=== PATIENT | female | born 1970 | race Caucasian/White ===

== ENCOUNTER 2022-09-02 09:03 | Emergency (ER) | payer BC, SELFPAY ==
[2022-09-02 09:20] VITALS: BP 123/77; PULSE 91; RESP 18; TEMP 36.5; O2SAT 97; BMI 25.1
--- OUTSIDE RECORDS SUMMARY | 2022-09-02 09:44 | XMS_ITS | Clinical Summary ---
:1970 Author Organization [employer] [facility] [place] [address] Care Team Providers Name Role Phone Tez Evans DO Primary Care Provider Allergies Active Allergy Reactions Severity Noted Date Comments Carbamazepine Rash 04/26/2006 Medications Medication Sig Dispensed Refills Start End Date Status Date cholecalciferol Take 1,000 units 0 Active (Vitamin D) 1,000 by mouth once 3 unit tablet daily. Calcium carbonate Take 500 mg by 0 Active (OYSTERSHELL mouth 2 times 3 CALCIUM) 500 mg daily with tablet meals. levETIRAcetam Take 1 tablet in 0 Active (KEPPRA) 500 mg the morning and 5 tabletIndications: 2 tablets in the Other convulsions evening until further instructions per Dr. Chi. topiramate Take 50 mg by 0 Activ e (TOPAMAX) 50 mg mouth 2 times 9 tablet daily. meclizine Take 1 Tablet 30 Tablet 0 Active (ANTIVERT) 25 mg (25 mg) by mouth 1 tabletIndications: 3 times daily if Vertigo needed for Vertigo. Estring 2 mg (7.5 INSERT 1 RING 0 Active mcg /24 hour) VAGINALLY EVERY 1 vaginal ring 3 MONTHS lisinopriL TAKE 1 TABLET BY 90 Tablet 3 Ac tive (PRINIVIL; ZESTRIL) MOUTH EVERY DAY 2 5 mg tabletIndications: HTN (hypertension) fluticasone Inhale 1 Puff by 60 Each 0 A ctive propionate (FLOVENT mouth 2 times 2 DISKUS) 100 daily. mcg/actuation inhalerIndications: Cough, Wheezing cetirizine (ZYRTEC) Take 1 Tablet 0 Active 10 mg (10 mg) by mouth 2 tabletIndications: once daily. Seasonal allergies polyethylene Drink 2 liters 4000 mL 0 Ac tive glycol-electrolyte the day before 2 (GOLYTELY) colonoscopy and [id number] drink 2 liters 6 -5.86 gram hours before suspensionIndicatio colonoscopy ns: Encounter for appointment screening colonoscopy amoxicillin-clavula Take 1 Tablet by 10 Tablet 0 Active rahul 875-125 mg mouth two times 2 22 tablet daily with meals (AUGMENTIN)Indicati for 5 days. ons: Acute non-recurrent maxillary sinusitis albuterol HFA Inhale 1-2 Puffs 1 Each 0 Active (PRO-AIR; VENTOLIN; by mouth every 4 2 PROVENTIL) 90 hours if needed mcg/actuation for Shortness of inhalerIndications: Breath 1st Bacterial choice or sinusitis, Acute Wheezing 1st cough choice. predniSONE Take 3 Tablets 12 Tablet 0 09/06/20 Acti ve (DELTASONE) 10 mg (30 mg) by mouth 2 22 tabletIndications: once daily with Bacterial a meal for 2 sinusitis, Acute days, THEN 2 cough Tablets (20 mg) once daily with a meal for 2 days, THEN 1 Tablet (10 mg) once daily with a meal for 2 days. guaiFENesin Take 1 Tablet 10 Tablet 0 09/05/20 Acti ve (MUCINEX) 600 mg (600 mg) by 2 22 Extended-Release mouth two times tabletIndications: daily for 5 Acute non-recurrent days. maxillary sinusitis, Bacterial sinusitis, Acute cough albuterol HFA Inhale 1-2 Puffs 1 Each 0 08/28/20 Discontinued (PRO-AIR; VENTOLIN; by mouth every 4 2 22 (Reorder PROVENTIL) 90 hours if needed (E-cancel not mcg/actuation for Shortness of sent)) inhalerIndications: Breath 1st Bacterial choice or sinusitis, Cough Wheezing 1st choice. 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 Cough, congestion, hea dache, fatigue. ) 08/28/2022 Travel 08/04/2022 Nurse/Clinic Staff Immunizat ion/Injection Only (TDAP AND 1ST S HINGRIX ); Immunization/In jection 08/04/2022 Travel 07/20/2022 Telephone Tez Evans, Questions 07/17/2022 Office Visit Tez Evans DO Physical (5 2 year old female ); Medic ation Management (Med s are going well - st arted the estrogen ) 07/17/2022 Telephone Oleksandr Juarez MD 07/17/2022 Travel 07/02/2022 Ancillary Procedure 07/02/2022 Telephone Tez Evans DO Results 07/02/2022 Travel from Last 3 Months Immunizations Name Administration Dates Next Due Influenza A (H1N1), Inactivated 09/25/2009 Influenza A (H1N1), Inactivated (Age 0109/25/2009 >=3 Years) Influenza, IIV3 (Age 6-35 mos) 06/26/2011, 07/09/2009 Influenza, IIV3 (Age >=3 years) 05/29/2013, 07/04/2012, 06/20, 07/19/2009, 07/23/2008, 08/09/2007, 07/09/2006, 07/15/2005, 06/27/2004, 07/28/2003 Influenza, IIV4 06/30/2021, 06/19/2019, 06/18/2017, 06/05/2015, 06/18/2014, 05/28/2014 Influenza, IIV4 (=>6mos) MDV 06/14/2018 Influenza,CCIIV4 PRESERV FREE 05/20/2022, 06/18/2020 Td (Age >=7 Years) 02/02/2003 Tdap 08/04/2022, 07/14/2012 Zoster (Shingrix-RZV, recombinant) 08/04/2022 Family History Medical History Relation Name Comments Stroke Brother carotid stenosis Hypertension Father Stroke Father carotid arteries Cancer-breast Maternal Aunt Cancer-breast Mother Hypertension Mother Cancer-breast Sister 1 Hypertension Sister 3 Relation Name Status Comments Brother Alive Father Alive Maternal Aunt Mother Alive Sister 1 Sister 2 Alive Sister 3 Social History Tobacco Use Types Packs/Day Years Used Date Smoking Tobacco: Never Smokeless Tobacco: Never Tobacco Cessation: Counseling Given: Yes Alcohol Use Standard Drinks/Week Comments Yes 0 (1 standard drink = 0.6 oz pure alcoho l) wine once in a while Alcohol Habits Answer Date Recorded How often do you have a drink containing alcohol? 2-3 times a week 07/02/2020 How many drinks containing alcohol do you have on a 1 or 2 07/02/2020 typical day when you are drinking? How often do you have six or more drinks on one Never 07/02/2020 occasion? Sex Assigned at Date Recorded Not on file COVID-19 Exposure Response Date Recorded In the last 10 days, have you been in contact with No / Unsu re 09/02/2022 7:30 AM SENIOR TREASURY ANALYST someone who was confirmed or suspected to have Coronavirus/COVID-19? Obstetrics History Para Term AB IAB SAB Ectopic Multiple Living Live Births 0 0 0 0 0 0 0 0 0 0 Last Filed Vital Signs Vital Sign Reading Time Taken Comments Blood Pressure 127/85 08/28/2022 3:29 PM SENIOR TREASURY ANALYST Pulse 64 08/28/2022 3:29 PM SENIOR TREASURY ANALYST Temperature 36.7 ??C (98.1 ??F) 05/05/2021 9:30 AM CDT Respiratory Rate 20 05/05/2021 9:45 AM CDT Oxygen Saturation 100% 08/28/2022 3:29 PM SENIOR TREASURY ANALYST Inhaled Oxygen Concentration - - Weight 62.6 kg (138 lb) 08/28/2022 3:29 PM SENIOR TREASURY ANALYST Height 157.6 cm (5' 2.05) 08/28/2022 3:29 PM SENIOR TREASURY ANALYST Body Mass Index 25.2 08/28/2022 3:29 PM SENIOR TREASURY ANALYST Plan of Treatment Upcoming Encounters Date Type Specialty Care Team Description 09/02/2022 Office Visit Kortney Deleon PA [address] [place], [place] [address] (Wo rk) Health Maintenance Due Date Last Done Comments HIV for age 15-65 1985 COVID-19 vaccine series (4 10/16/2021 08/21/2021, , - Booster for Pfizer 11/30/2020 series) Colonoscopy through age 75 04/07/2022 04/07/2017, 7 Zoster (shingles) series 09/29/2022 08/04/2022 for age 50+ (2 of 2) Influenza for age 50-64 04/20/2023 05/20/2022, 06/30/2021, Postponed from 06/18/2020, Additional 2 (Other) history exists Mammogram for age 45-75 07/02/2023 07/02/2022, 06/24/2021, 05/17/2020, Additional history exists Depression screening for 07/20/2023 07/20/2022, 07/17/2022, age 12+ 07/17/2022, Additional history exists BMI (ht and wt on same 08/28/2023 08/28/2022, 07/17/2022, day) for age 18+ 06/30/2021, Additional history exists Lipids for age 45-75 07/17/2027 07/17/2022, 06/30/2021 Tetanus booster 08/04/2032 08/04/2022, 07/14/2012, 02/02/2003 Hepatitis C screening for Completed 07/17/2022 age 18-79 Tdap Completed 08/04/2022, 07/14/2012 Procedures Procedure Name Priority Date/Time Associated Diagnosis Comme nts POTASSIUM Routine 08/28/2022 4:15 PM Pre-op exam Results f or this SENIOR TREASURY ANALYST procedure are i n the results section. BASIC METABOLIC Routine 07/17/2022 8:36 AM HTN (hypertension) Results for this PANEL CDT procedure are i n the results section. LIPID PANEL W Routine 07/17/2022 8:36 AM Lipid screening Resul ts for this REFLEX MEASURED LDL CDT procedur e are in the results section. ANTI HCV Routine 07/17/2022 8:36 AM Need for hepatitis C R esults for this CDT screening test procedure are in the results section. XR MAMMO SEVERIANO BILAT Routine 07/02/2022 9:14 AM Visit for dina rowley Results for this SCREEN CDT mammogram procedure are i n the results section. from Last 3 Months Results POTASSIUM (08/28/2022 4:15 PM SENIOR TREASURY ANALYST) athologist Signature POTASSIUM 4.2 3.5 - 5.0 08/30/2022 [facility] [employer] mmol/L 5:12 PM SENIOR TREASURY ANALYST LABORATORY-CENTR AL LABORATORY Specimen Anatomical Collection Method / Collection Time Recei bharat Time (Source) Location / Volume Laterality Blood BLOOD SPECIMEN / Venipuncture / 08/28/2022 4:15 2021 4:16 Unknown Unknown PM SENIOR TREASURY ANALYST PM SENIOR TREASURY ANALYST rTangi Nathan DO CHEMISTRY Performing Organization Address City/State/ZIP Code Phon e Number [employer] [address] [place] [address] LABORATORY-CENTRAL 2000 LABORATORY (ABNORMAL) LIPID PANEL W REFLEX MEASURED LDL (07/17/2022 8:36 AM CDT) [facility] gist Method Time Signature CHOLESTEROL,TOTAL 268 (H) 100 - 199 07/19/2022 [facility] mg/dL 1:50 AM CDT LABORATORY-J[facility] TRAL LABORATORY TRIGLYCERIDES 95 <150 07/19/2022 [facility] mg/dL 1:50 AM CDT LABORATORY-[facility] TRAL LABORATORY HDL CHOLESTEROL 68 >40 mg/dL 07/19/2022 [facility] 1:50 AM CDT LABORATORY-[facility] TRAL LABORATORY NON-HDL 200 (H) <145 07/19/2022 [facility] CHOLESTEROL mg/dl 1:50 AM CDT LABORATORY-[facility] TRAL LABORATORY CHOL/HDL RATIO 3.94 <4.50 07/19/2022 [facility] 1:50 AM CDT LABORATORY-[facility] TRAL LABORATORY LDL CHOLESTEROL 181 (H) <=130 07/19/2022 [facility] mg/dL 1:50 AM CDT LABORATORY-[facility] TRAL LABORATORY VLDL CHOLESTEROL 19 <=30 07/19/2022 [facility] mg/dL 1:50 AM CDT LABORATORY-[facility] TRAL LABORATORY PROVIDER ORDERED RANDOM 07/19/2022 [facility] STATUS 1:50 AM CDT LABORATORY-[facility] TRAL LABORATORY Specimen Anatomical Collection Method / Collection Time Recei bharat Time (Source) Location / Volume Laterality Blood BLOOD SPECIMEN / Venipuncture / 07/17/2022 8:36 2021 8:36 Unknown Unknown AM CDT AM CDT Tez Evans DO CHEMISTRY Performing Organization Address City/[facility] Phon e Number [employer] [address] [place] [phone] LABORATORY-CENTRAL 2000 LABORATORY ANTI HCV (07/17/2022 8:36 AM CDT) Patholo gist Method Time Signature HEPATITIS C Non-Reacti Non-Reacti 07/19/2022 [facility] ANTIBODY ve ve 1:54 AM CDT LABORATORY-J[facility] TRAL LABORATORY Comment: Antibodies to HCV not detected; does not exclude the possibility of exposure to HCV. Specimen Anatomical Collection Method / Collection Time Recei bharat Time (Source) Location / Volume Laterality Blood BLOOD SPECIMEN / Venipuncture / 07/17/2022 8:36 2021 8:36 Unknown Unknown AM CDT AM CDT Tez Evans DO SEND OUTS Performing Organization Address City/[facility] Phon e Number [employer] [address] [place] [phone] LABORATORY-CENTRAL 1999 LABORATORY (ABNORMAL) BASIC METABOLIC PANEL (07/17/2022 8:36 AM CDT) P athologist Signature SODIUM 140 135 - 145 07/19/2022 [facility] mmol/L 1:49 AM CDT LABORATORY-J[facility] TRAL LABORATORY POTASSIUM 4.3 3.5 - 5.0 07/19/2022 [facility] mmol/L 1:49 AM CDT LABORATORY-J[facility] TRAL LABORATORY CHLORIDE 107 98 - 110 07/19/2022 [facility] mmol/L 1:49 AM CDT LABORATORY-J[facility] TRAL LABORATORY CO2,TOTAL 26 21 - 31 07/19/2022 [employer] mmol/L 1:49 AM CDT LABORATORY-J[facility] TRAL LABORATORY ANION GAP 7 5 - 18 07/19/2022 [employer] 1:49 AM CDT LABORATORY-J[facility] TRAL LABORATORY GLUCOSE 91 65 - 100 07/19/2022 [facility] [employer] mg/dL 1:49 AM CDT LABORATORY-J[facility] TRAL LABORATORY CALCIUM 10.1 8.5 - 10.5 07/19/2022 [facility] [employer] mg/dL 1:49 AM CDT LABORATORY-JH TRAL LABORATORY BUN 19 8 - 25 07/19/2022 [facility] [employer] mg/dL 1:49 AM CDT LABORATORY-JH TRAL LABORATORY CREATININE 0.74 0.57 - 07/19/2022 [employer] 1.11 mg/dL 1:49 AM CDT LABORATORY-J[facility] TRAL LABORATORY BUN/CREAT RATIO 26 (H) 10 - 20 07/19/2022 [facility] [employer] 1:49 AM CDT LABORATORY-J[facility] TRAL LABORATORY eGFR >90 >90 07/19/2022 [facility] [employer] mL/min/1.7 1:49 AM CDT LABORATORY-JH 3m2 TRAL LABORATORY Comment: As of 2021, eGFR is calcu lated by the CKD-EPI creatinine equation without race adjustment. eGFR can be inf luenced by muscle mass, exercise, and diet. The reported eGFR is an estimation only and is only applicable if the renal function is stable. Specimen Anatomical Collection Method / Collection Time Recei bharat Time (Source) Location / Volume Laterality Blood BLOOD SPECIMEN / Venipuncture / 07/17/2022 8:36 2021 8:36 Unknown Unknown AM CDT AM CDT Tez Evans DO CHEMISTRY Performing Organization Address City/State/ZIP Code Phon e Number [employer] [address] [place] [address] LABORATORY-CENTRAL 2000 LABORATORY XR MAMMO SEVERIANO BILAT SCREEN (07/02/2022 9:14 AM CDT) Anatomical Region Laterality Modality BREASTS, Breast Left, Breast Right Bilateral Mammo graphy Specimen (Source) Anatomical Location Collection Method / Collectio n Time Received Time / Laterality Volume Impressions 07/02/2022 3:36 PM CDT ??There is no radiographic evidence for malignancy. ??Recommend annual mammograms. MAMMOGRAM ASSESSMENT: ??ACR 1 Negative PATIENTS: You will also receive a letter with your examination results in an easy to read format. ??If you have qu estions about your results, please contact your referring provider. Narrative 07/02/2022 3:36 PM CDT For Patients: As a result of the Cures Act, medical imaging exams and procedure reports are released immediately into your electronic medical record. You may view this report before your referring provider. If you have questions, please contact [facility] care provider. XR MAMMO SEVERIANO BILAT SCREEN [[id number]] CLINICAL HISTORY: ??This is an asymptoma tic 52 y.o. patient. INDICATION FOR EXAM: Mammogram Screening . TECHNIQUE: CC & MLO views were obtained. ??This study was evaluated with the assistance of Computer-Aided Detecti on. Breast Tomosynthesis was used in interpretation. COMPARISON FILM: Yes 06/24/21 [facility] 05/17/20 [facility] FINDINGS: ??The breasts are heterogeneou sly dense, which may obscure small masses. There are no dominant masses, wilson spicious micro calcifications or areas of architectural distortion. Tez Evans DO MAMMO from Last 3 Months Insurance Payer Benefit Plan / Subscriber ID Effective Dates Phone Addre ss Type Group BLUE [employer]OSS [id number] 2017-Present [address] [place] [address] [employer] Self 1970 [facility] (Home) [place] [address] Care Teams Patient Clerical Assistant Relationship Specialty Start Date End Date Tez Evans DO PCP - General Family Practice 11/26/20 [place] [address]
--- NOTE | 2022-09-02 10:04 | PC.NURSE ---
Patient was discharged home. Prescription for Tesslon Pearls were sent to [facility]. will call patient with results of test. All questions answered. Left ambulatory.
[2022-09-02 10:05] VITALS: PULSE 76; RESP 16; O2SAT 97
[2022-09-02 10:17] LABS: PCR FLU A Negative PCR FLU A (Negative); PCR FLU B Negative PCR FLU B (Negative); PCR RSV POSITIVE PCR RSV (Negative); SARS PCR* Negative SARS-CoV-2 (Negative)
--- NOTE | 2022-09-02 11:03 | ED.NURSE ---
Called patient with results of COVID/FLU/RSV. Was RSV positive. Per Dr. Leavitt, continue the plan when patient discharged. All questions answered.
--- NOTE | 2022-09-08 09:22 | ED_ITS ---
HPI - General Adult General Chief complaint: Cough Stated complaint: Cough, fever Time Seen by Provider: 09/02/22 09:05 History of Present Illness HPI narrative: Patient is a 52 year white female who presents with not feeling well for couple days, cough congestion. She was started on prednisone, Augmentin. She got inhaler as well. She is not specifically improved presents to ER for evaluation, no real shortness of breath, no chest pain. No leg swelling or edema or clotting problems. Related Data Home Medications Medication Instructions Recorded Confirmed albuterol sulfate 90 mcg/actuation inhalation 09/02/22 aerosol inhaler amoxicillin 875 mg-potassium tab 09/02/22 clavulanate 125 mg tablet lisinopril 5 mg tablet 5 mg PO DAILY 09/02/22 09/02/22 prednisone 10 mg tablet 10 mg PO DAILY 09/02/22 09/02/22 topiramate 50 mg tablet 50 mg PO DAILY 09/02/22 09/02/22 Previous Rx's Medication Instructions Recorded estradiol 2 mg (7.5 mcg/24 hour) 1 vag ring vaginal [id number] #1 ea 08/31/22 vaginal ring (Estring) benzonatate 100 mg capsule 100 mg PO Q6H #20 caps 09/02/22 Review of Systems Status of ROS: Reports: 6 or more systems reviewed and unremarkable except as noted in History and below Exam Narrative: Exam Narrative: Objective vital signs unremarkable afebrile O2 sat 97% on room air HEENT unremarkable Chest clear Skin good peripheral perfusion Neurologic nonfocal Course Vital Signs Vital signs: Initial Vital Signs Temperature 97.7 F 09/02/22 09:20 Temperature Source Temporal Artery Scan 09/02/22 09:20 Pulse Rate 91 09/02/22 09:20 Respiratory Rate 18 09/02/22 09:20 Blood Pressure 123/77 09/02/22 09:20 Blood Pressure Mean 92 09/02/22 09:20 Blood Pressure Position Sitting 09/02/22 09:20 Pulse Oximetry 97 09/02/22 09:20 Oxygen Delivery Method 09/02/22 09:20 Vital Signs Temperature 97.7 F 09/02/22 09:20 Pulse Rate 91 09/02/22 09:20 Respiratory Rate 18 09/02/22 09:20 Blood Pressure 123/77 09/02/22 09:20 Pulse Oximetry 97 09/02/22 09:20 Oxygen Delivery Method 09/02/22 09:20 Temperature 97.7 F 09/02/22 09:20 Pulse Rate 76 09/02/22 10:05 Respiratory Rate 16 09/02/22 10:05 Blood Pressure 123/77 09/02/22 09:20 Pulse Oximetry 97 09/02/22 10:05 Oxygen Delivery Method 09/02/22 10:05 Medical Decision Making MDM Narrative Medical decision making narrative: Patient will get a COVID/RSV/influenza test Addendum: The patient is positive for RSV, symptomatic management, Tessalon Perles as needed, continue continue and finish the prednisone and other medications she was prescribed, inhaler as needed. Return as needed. Lab Data Labs: Lab Results 09/02/22 Range/Units 09:30 SARS-CoV-2 (PCR) Negative SARS-CoV-2 (Negative) Influenza Type A (PCR) Negative PCR FLU A (Negative) Influenza Type B (PCR) Negative PCR FLU B (Negative) RSV (PCR) POSITIVE PCR RSV A (Negative) Discharge Plan Discharge Clinical Impression: Acute viral syndrome Patient Disposition: Home, Self-Care Additional Instructions: Rest, light activity, off work for 3-4 days, Tylenol Advil as needed, continue the medications as prescribed, will call in Tyto Life as well. Recheck with regular doctor next 2-3 days not improving, return to ED sooner problems or concerns. . Mucinex while on the Tyto Life Activity Level: Light activity Discharge Diet: Regular Prescriptions: New benzonatate 100 mg capsule 100 mg PO Q6H Qty: 20 0RF No Action lisinopril 5 mg tablet 5 mg PO DAILY Label Comments: TAKE 1 TABLET BY MOUTH EVERY DAY albuterol sulfate 90 mcg/actuation HFA aerosol inhaler INHALATION Label Comments: INHALE 1-2 PUFFS BY MOUTH EVERY 4 HOURS IF NEEDED FOR SHORTNESS OF BREATH/WHEEZING 1ST CHOICE amoxicillin-pot clavulanate 875-125 mg tablet Label Comments: TAKE 1 TABLET BY MOUTH TWO TIMES DAILY WITH MEALS FOR 5 DAYS. prednisone 10 mg tablet 10 mg PO DAILY Label Comments: 2 tabs then 1 tab x 3 daily topiramate 50 mg tablet 50 mg PO DAILY Label Comments: TAKE 1 TABLET BY MOUTH TWICE A DAY Estring 2 mg (7.5 mcg /24 hour) ring 1 vag ring vaginal [id number] Qty: 1 0RF Follow Up/Referrals: KHADRA LANGLEY DO [Primary Care Provider] - Stand Alone Forms: [employer] Info Instructions
== END 2022-09-02 09:57 | disposition home or self-care (01) ==
LOC: ED 09:42
PROVIDERS: Emergency Provider Family Medicine; PCP Student in an Organized Health Care Education/Training Program
DX: R05.9 Cough, unspecified (principal); R09.89 Other specified symptoms and signs involving the circulatory and respiratory systems; B34.9 Viral infection, unspecified
CPT/HCPCS: 87502; 87634; 87635; 99283

== ENCOUNTER 2023-10-04 07:27 | Outpatient (CLI) | payer BC, SELFPAY ==
--- OUTSIDE RECORDS SUMMARY | 2023-10-04 07:41 | XMS_ITS | Clinical Summary ---
Author Name Unknown Organization [facility] Address [place], [place] [address] Care Team Providers Care Beater Tender Name Role Phone Tez Evans DO Primary Care Provider [phone] Allergies Active Allergy Reactions Criticality Noted Date Comments Carbamazepine Rash 04/26/2006 Medications Medication Sig Dispensed Refills Start Date End Date Status cholecalciferol (Vitamin D) 1,000 unit tablet Take 1,000 units by mouth once daily. 0 3 Active Calcium carbonate (OYSTERSHELL CALCIUM) 500 mg tablet Take 500 mg by mouth 2 times daily with meals. 0 3 Active levETIRAcetam (KEPPRA) 500 mg tabletIndication s:Other convulsions Take 1 tablet in the morning and 2 tablets in the evening until further instructions per Dr. Chi. 0 5 Active topiramate (TOPAMAX) 50 mg tablet Take 50 mg by mouth 2 times daily. 0 9 Active meclizine (ANTIVERT) 25 mg tabletIndication s:Vertigo Take 1 Tablet (25 mg) by mouth 3 times daily if needed for Vertigo. 30 Tablet 0 1 Active cetirizine (ZYRTEC) 10 mg tabletIndication s:Seasonal allergies Take 1 Tablet (10 mg) by mouth once daily. 0 2 Active estrogens, conjugated (Premarin) 0.625 mg/gram vaginal creamIndications :Vaginal atrophy 1 applicatorful intravaginally twice a week. 42.5 g 0 3 Active polyethylene glycol-electroly te (GOLYTELY) 236-22.74-6.74 -5.86 gram suspensionIndica tions:Encounter for screening colonoscopy Drink 2 liters the day before the procedure and 2 liters 6 hours prior to procedure 4000 mL 0 3 Active lisinopriL (PRINIVIL; ZESTRIL) 5 mg tabletIndication s:HTN (hypertension) TAKE 1 TABLET BY MOUTH EVERY DAY 90 Tablet 0 4 Active lisinopriL (PRINIVIL; ZESTRIL) 5 mg tabletIndication s:HTN (hypertension) Take 1 Tablet (5 mg) by mouth once daily. 90 Tablet 0 3 09/26/19 24 Discontinued Active Problems Problem Noted Date Diagnosed Date Adenomatous polyp of sigmoid colon 04/09/2017 Overview: Colonoscopy 03/2017 polyp, random biopsies normal, repeat in 5 years Generalized idiopathic epile psy and epileptic syndromes, not intractable, without status epilepticus 08/21/2015 Osteopenia 12/19/2014 Insomnia, unspecified 10/22/2010 Polycystic ovaries 04/08/2007 Overview: syndrome Encounters Date Type Department Care Team Description 09/29/2023 Telephone [facility] [address] [place] [address] Oleksandr Juarez MD Error-please disregard 09/24/2023 Refill [facility] [place] [address] Tez Evans DO Refill Request (Lisinopril) 09/21/2023 7:40 AM RETAIL ASSOCIATE Preop Visit [facility] [address] [place] [address] Tez Evans DO Preoperative Exam (Colonoscopy at [facility] by Dr. Juarez on 10/04/23); Immunization/Injecti on; Immunization/Injecti on (COVID-19 vaccine) 09/21/2023 Travel 08/23/2023 Nurse Triage [facility] [place] [address] Tez Evans DO Diarrhea 07/06/2023 1:10 PM CDT Orders Only [facility] [place] [address] Lab, [place] Outside Order (Ordered by Randall Garrido) 07/06/2023 11:40 AM CDT Ancillary Procedure [facility] [address] [place] [address] 07/06/2023 Travel from Last 3 Months Immunizations Name Administration Dates Next Due COVID-19 vaccine (Pfizer-Bio NTech 30mcg/0.3mL) 12YO+ BIVALENT PF, MDV 12/17/2022 Influenza A (H1N1), Inactivated 09/25/2009 Influenza A (H1N1), Inactiva misha (Age >=3 Years) 09/25/2009 Influenza, IIV3 (Age 6-35 mos) 06/26/2011,2008 Influenza, IIV3 (Age >=3 years) 05/29/20 13,07/04/2012,07/08/2010,2008,07/23/2008,08/09/2007,07/09/2006,1 ,06/27/2004,07/28/2003 Influenza, IIV4 06/30/2021, 9,06/18/2017,2014,06/18/2014,05/28/2014 Influenza, IIV4 (=>6mos) MDV 06/14/2018 Influenza,CCIIV4 PRESERV FREE 05/20/2022, 020 Td (Age >=7 Years) 02/02/2003 Tdap 08/04/2022,07/14/2012 Zoster (Shingrix-RZV, recombinant) 12/17/2022, Family History Medical History Relation Name Comments Stroke Brother carotid stenosi s Hypertension Father Stroke Father carotid arterie s Cancer-breast Maternal Aunt Cancer-breast Mother Hypertension Mother Cancer-breast Sister 1 Hypertension Sister 3 Cancer-ovarian No Family History Relation Name Status Comments Brother Alive Father Alive Maternal Aunt Mother Alive Sister 1 Sister 2 Alive Sister 3 Social History Tobacco Use Types Packs/Day Years Used Date Smoking Tobacco: Never Smokeless Tobacco: Never Tobacco Cessation:Counseling Given: Yes Alcohol Use Standard Drinks/Week Comments Yes 0 (1 standard drink = 0.6 oz pur e alcohol) wine once in a while PHQ-2 Answer Date Recorded PHQ-2 TOTAL SCORE 0 07/17/2022 Social Connections Answer Date Recorded Frequency of Communication with Friends and Fami ly 0 03/08/2023 Financial Resource Strain Answer Date R ecorded Difficulty of Paying Living Expenses 3 03/08/2023 Difficulty of Paying Living Expenses Not on file 03/08/2023 Food Insecurity Answer Date Recorded Worried About Running Out of Food in the Last Ye ar 1 03/08/2023 Transportation Needs Answer Date Record ed Lack of Transportation (Medical) 1 03/08/2023 Housing Stability Answer Date Recorded Unable to Pay for Housing in the Last Year 1 03/08/2023 Sex and Gender Information Value Date Recorded Sex Assigned at Not on file Gender Identity Not on file Sexual Orientation Not on file Obstetrics History Para Term AB IAB SAB Ectopic Multiple Livin g Live Births 0 0 0 0 0 0 0 0 0 0 Last Filed Vital Signs Vital Sign Reading Time Taken Comments Blood Pressure 145/75 09/21/2023 7:35 AM RETAIL ASSOCIATE Pulse 65 09/21/2023 7:35 AM RETAIL ASSOCIATE Temperature 36.7 ??C (98.1 ??F) 09/21/2023 7:35 AM CS T Respiratory Rate 20 05/05/2021 9:45 AM CDT Oxygen Saturation 100% 09/21/2023 7:35 AM RETAIL ASSOCIATE Inhaled Oxygen Concentration - - Weight 65.3 kg (144 lb) 09/21/2023 7:35 AM RETAIL ASSOCIATE Height 160 cm (5' 3) 09/21/2023 7:35 AM RETAIL ASSOCIATE Body Mass Index 25.51 09/21/2023 7:35 AM RETAIL ASSOCIATE Plan of Treatment Upcoming Encounters Date Type Department Care Team (Late st Contact Info) Description 10/04/2023 7:45 AM RETAIL ASSOCIATE Procedure Only [facility] [address] [place] [address] Oleksandr Juarez MD [address] [place] [address] Health Maintenance Due Date Last Done Comments HIV for age 15-65 1985 Colonoscopy through age 75 04/07/2022 04/07/2017, COVID-19 vaccine series ( season) 2023 12/17/2022, 08/21/2021, 12/21/2020, Additional history exists Influenza for age 50-64 05/21/2023 05/20/20 22, 06/30/2021, 06/18/2020, Additional history exists Depression screening for age 12+ 07/20/2023 07/20/2022, 07/17/2022, 07/17/2022, Additional history exists Mammogram for age 45-75 07/06/2024 07/06/20 23, 07/02/2022, 06/24/2021, Additional history exists BMI (ht and wt on same day) for age 18+ 09/21/2024 09/21/2023, 08/28/2022, 07/17/2022, Additional history exists Lipids for age 45-75 07/17/2027 07/17/2022, 06/30/20 21 Tetanus booster 08/04/2032 08/04/2022, 06/21, 02/02/2003 Hepatitis C screening for age 18-79 Completed 07/17/2022 Tdap Completed 08/04/2022, 07/14/2012 Zoster (shingles) series for age 50+ Completed 12/17/2022, 08/04/2022 Pneumococcal series for age 6-64 Aged Out No longer eligible based on patient's age to complete this topic Procedures Procedure Name Priority Date/Time Associated Diagnosis Comments POTASSIUM Routine 09/21/2023 8:18 AM RETAIL ASSOCIATE Pre-op evaluation CBC WITH AUTO DIFFERENTIAL Routine 07/06/2023 11:58 AM CDT Idiopathic generalized epilepsy (HC) LEVETIRACETAM (KEPPRA) Routine 11:58 AM CDT Idiopathic generalized epilepsy (HC) CBC WITH AUTO DIFFERENTIAL Routine 07/06/2023 11:58 AM CDT Idiopathic generalized epilepsy (HC) BASIC METABOLIC PANEL Routine 07/06/2023 11:58 AM CDT Idiopathic generalized epilepsy (HC) AST (SGOT) Routine 07/06/2023 11:58 AM CDT Idiopathic generalized epilepsy (HC) XR MAMMO SEVERIANO BILAT SCREEN Routine 07/06/2023 11:47 AM CDT Visit for screening mammogram from Last 3 Months Results * POTASSIUM (09/21/2023 8:18 AM RETAIL ASSOCIATE) POTASSIUM 4.3 3.5 - 5.1 mmol/L 09/21/2023 1:49 PM RETAIL ASSOCIATE [facility] Blood BLOOD SPECIMEN / Unknown Venipuncture / Unknown 09/21/2023 8:18 AM RETAIL ASSOCIATE 09/21/2023 8:18 AM RETAIL ASSOCIATE Tez Evans DO CHEMISTRY [facility] [address] [place] [address], * CBC WITH AUTO DIFFERENTIAL (07/06/2023 11:58 AM CDT) WHITE BLOOD COUNT 6.1 4.5 - 11.0 thou/cu mm 07/06/2023 12:02 PM CDT [facility] RED BLOOD COUNT 4.59 4.00 - 5.20 mil/cu mm 07/06/2023 12:02 PM CDT [facility] HEMOGLOBIN 14.5 12.0 - 16.0 g/dL 07/06/2023 12:02 PM CDT [facility] HEMATOCRIT 42.0 33.0 - 51.0 % 07/06/2023 12:02 PM CDT [facility] MCV 92 80 - 100 fL 07/06/2023 12:02 PM CDT [facility] MCH 31.6 26.0 - 34.0 pg 07/06/2023 12:02 PM CDT [facility] MCHC 34.5 32.0 - 36.0 g/dL 07/06/2023 12:02 PM CDT [facility] RDW 12.3 11.5 - 15.5 % 07/06/2023 12:02 PM CDT [facility] PLATELET COUNT 276 140 - 440 thou/cu mm 07/06/2023 12:02 PM CDT [facility] MPV 9.6 6.5 - 11.0 fL 07/06/2023 12:02 PM CDT [facility] % NEUT 66.5 % 07/06/2023 12:02 PM CDT [facility] % LYMPH 24.8 % 07/06/2023 12:02 PM CDT [facility] % MONO 7.7 % 07/06/2023 12:02 PM CDT [facility] % EOS 0.8 % 07/06/2023 12:02 PM CDT [facility] % BASO 0.2 % 07/06/2023 12:02 PM CDT [facility] ABSOLUTE NEUTROPHILS 4.1 1.7 - 7.0 thou/cu mm 07/06/2023 12:02 PM CDT [facility] ABSOLUTE LYMPHOCYTES 1.5 0.9 - 2.9 thou/cu mm 07/06/2023 12:02 PM CDT [facility] ABSOLUTE MONOCYTES 0.5 <0.9 thou/cu mm 07/06/2023 12:02 PM CDT [facility] ABSOLUTE EOSINOPHILS 0.1 <0.5 thou/cu mm 07/06/2023 12:02 PM CDT [facility] ABSOLUTE BASOPHILS 0.0 <0.3 thou/cu mm 07/06/2023 12:02 PM CDT [facility] Blood BLOOD SPECIMEN / Unknown Venipuncture / Unknown 07/06/2023 11:58 AM CDT 07/06/2023 11:58 AM CDT Narrative [facility] - 07/06/2023 12:02 PM CDT This testing was ordered by an outside provider. The provider who placed this order has reviewed and approved it for completion by the lab, but is not involved in this patient's care related to the ordering of this lab. The lab will provide the testing results for AST, BMP, CDF and Keppra, to the outside ordering provider, Randall Garrido at fax number [phone], for that provider to inform and arrange appropriate follow up with the patient. Yarelis Davies MLT ([facility]).................... ??07/06/2023 ?? 11:53 AM Tez Evans DO HEMATOLOGY [facility] [address] [place] [address], * LEVETIRACETAM (KEPPRA) (07/06/2023 11:58 AM CDT) LEVETIRACETAM (KEPPRA) 21.8 6.0 - 46.0 ug/mL 07/07/2023 10:57 AM CDT [facility] Blood BLOOD SPECIMEN / Unknown Venipuncture / Unknown 07/06/2023 11:58 AM CDT 07/06/2023 11:58 AM CDT Narrative [facility] - 07/07/2023 10:57 AM CDT Reference Range is based on Trough Steady State in patients receiving recommended daily dose. ??The relationship between serum concentrations and toxicity is not known. Bivaracetam (Briviact??) interferes with measurements of levetiracetam (Keppra??) in the ARK Levetiracetam Assay Tez Evans DO SEND OUTS Performing Organization Address City/[facility]/ZIP Co de Phone Number [facility] [address] [place] [address], * AST (SGOT) (07/06/2023 11:58 AM CDT) AST (SGOT) 30 10 - 35 IU/L 07/07/2023 10:50 AM CDT [facility] Blood BLOOD SPECIMEN / Unknown Venipuncture / Unknown 07/06/2023 11:58 AM CDT 07/06/2023 11:58 AM CDT Tez Evans DO CHEMISTRY [facility] [address] [place] [address], * (ABNORMAL) BASIC METABOLIC PANEL (07/06/2023 11:58 AM CDT) SODIUM 137 136 - 145 mmol/L 07/07/2023 10:50 AM CDT [facility] POTASSIUM 4.1 3.5 - 5.1 mmol/L 07/07/2023 10:50 AM CDT [facility] CHLORIDE 102 98 - 107 mmol/L 07/07/2023 10:50 AM CDT [facility] CO2,TOTAL 25 22 - 29 mmol/L 07/07/2023 10:50 AM CDT [facility] ANION GAP 10 5 - 18 07/07/2023 10:50 AM CDT [facility] GLUCOSE 86 70 - 99 mg/dL 07/07/2023 10:50 AM CDT [facility] CALCIUM 10.0 8.6 - 10.0 mg/dL 07/07/2023 10:50 AM CDT [facility] BUN 18 6 - 20 mg/dL 07/07/2023 10:50 AM CDT [facility] CREATININE 0.72 0.50 - 0.90 mg/dL 07/07/2023 10:50 AM CDT [facility] BUN/CREAT RATIO 25(H) 10 - 20 10:50 AM CDT [facility] eGFR >90 >90 mL/min/1.7 3m2 07/07/2023 10:50 AM CDT [facility] Comment:As of 2021, eG FR is calculated by the CKD-EPI creatinine equation without race adjustment. ??eGFR can be influenced by muscle mass, exercise, and diet. ??The reported eGFR is an estimation only and is only applicable if the renal function is stable. Blood BLOOD SPECIMEN / Unknown Venipuncture / Unknown 07/06/2023 11:58 AM CDT 07/06/2023 11:58 AM CDT Tez Evans DO CHEMISTRY [facility] [address] [place] [address], [place] * XR MAMMO SEVERIANO BILAT SCREEN (07/06/2023 11:47 AM CDT) Anatomical Region Laterality Modality BREASTS, Breast Left, Breast Right Bilateral Mammography Impressions 07/06/2023 3:41 PM CDT ??There is no radiographic evidence for malignancy. ??Recommend annual mammograms. MAMMOGRAM ASSESSMENT: ??ACR 2 Benign PATIENTS: You will also receive a letter with your examination results in an easy to read format. ??If you have questions about your results, please contact your referring provider. Narrative 07/06/2023 3:41 PM CDT For Patients: As a result of the Cures Act, medical imaging exams and procedure reports are released immediately into your electronic medical record. You may view this report before your referring provider. If you have questions, please contact your health care provider. XR MAMMO SEVERIANO BILAT SCREEN [[id number]] CLINICAL HISTORY: ??This is an asymptomatic 53 y.o. patient. INDICATION FOR EXAM: Mammogram Screening. TECHNIQUE: CC & MLO views were obtained. ??This study was evaluated with the assistance of Computer-Aided Detection. Breast Tomosynthesis was used in interpretation. COMPARISON FILMS: Yes 07/02/22 [facility] 06/24/21 [facility] FINDINGS: ??The breasts are heterogeneously dense, which may obscure small masses. ??No suspicious masses or microcalcifications. ??There are benign appearing mass(es). Left breast biopsy clip. Tez Evans DO MAMMO from Last 3 Months Care Teams Beater Tender Relationship Specialty Start Date End Date Tez [place] [address] [place] [address] PCP - General Family Practice 11/26/20
--- NOTE | 2023-10-04 09:08 | W.ANESCHARGE ---
Anesthesia Charges Start Date/Time Anesthesia Start Date: 10/04/23 Anesthesia Start Time: 08:42 Stop Date/Time Anesthesia Stop Date: 10/04/23 Anesthesia Stop Time: 09:04
--- NOTE | 2023-10-04 09:21 | W.ANESCHARGE ---
Anesthesia Charges Start Date/Time Anesthesia Start Date: 10/04/23 Anesthesia Start Time: 08:42 Stop Date/Time Anesthesia Stop Date: 10/04/23 Anesthesia Stop Time: 09:04
== END 2023-10-04 07:28 | disposition home or self-care (01) ==
LOC: OP CLINIC 07:28
PROVIDERS: PCP Student in an Organized Health Care Education/Training Program; Visit Provider Internal Medicine Gastroenterology
DX: Z12.11 Encounter for screening for malignant neoplasm of colon (principal); Z86.010 Personal history of colon polyps
CPT/HCPCS: 00812; 45378; J2704